=== PATIENT | female | born 2000 | race Caucasian/White ===

== ENCOUNTER 2019-07-26 17:58 | Emergency (ER) | payer OTHER ==
[~2019-07-26] VITALS: Ht 170.2 cm; Wt 75.0 kg
[~2019-07-26 17:58] MED LIST: AMOXICILLIN875 MG PO; GNP IBUPROFEN; HAVRIX720 UNI1 IM; MENACTRA PO; NO MEDS; OMNICEF300 M1 PO; [UNRECOGNIZED DRUG - OTHER]
[2019-07-26 19:41] VITALS: BP 133/80
== END 2019-07-26 19:41 | disposition home or self-care (01) | DRG 563 ==
LOC: ED 17:58
DX: S63.92XA Sprain of unspecified part of left wrist and hand, initial encounter (principal); S50.12XA Contusion of left forearm, initial encounter; F17.210 Nicotine dependence, cigarettes, uncomplicated; V43.52XA Car driver injured in collision with other type car in traffic accident, initial encounter